=== PATIENT | male | born 1955 | race Caucasian/White ===

== ENCOUNTER 2019-12-19 18:59 | Emergency (ER) | payer BC ==
[2019-12-19] MEDS ORDERED: Sodium Chloride 0.9% 10 ML Syringe FLUSH PRN (19:20)
--- NOTE | 2019-12-19 19:23 | EDM.PDOC ---
ED HPI GENERAL MEDICAL PROBLEM - General Chief Complaint: General Stated Complaint: BACK PAIN Time Seen by Provider: 12/19/19 19:15 Source of Information: Reports: Patient History Limitations: Reports: No Limitations - History of Present Illness INITIAL COMMENTS - FREE TEXT/NARRATIVE: Patient is a 64-year-old gentleman who presents to the emergency department this evening via private vehicle with a complaint of back pain and overall body aches. Patient states he was moving furniture on Monday and developed low back pain. Pain has gradually increased. Patient spoke to [facility] provider earlier today and it was recommended that he present to the emergency department. Patient states that pain is located across low back. Feels very clammy, sweaty, and weak. Patient denies fever, out of area travel, nausea, vomiting, diarrhea, abdominal pain, shortness of breath, chest pain, saddle anesthesia, bowel or urinary incontinence. Patient does have a history of Crohn 's disease, but denies blood in stool. Onset: Gradual Onset Date: 12/14/19 Duration: Day(s): Location: Reports: Back Quality: Reports: Ache Severity: Moderate Improves with: Reports: None Worsens with: Reports: Movement Context: Reports: Activity Associated Symptoms: Reports: Diaphoresis, Weakness. Denies: Chest Pain, Cough , Fever/Chills, Headaches, Shortness of Breath - Related Data Allergies Allergy/AdvReac Type Severity Reaction Status Date / Time hydrochlorothiazide Allergy Headache Verified 12/19/19 19:23 No Known Drug Allergies Allergy Other Verified 11/10/14 07:11 Home Meds: Home Meds Levothyroxine Sodium 25 mcg PO ACBREAKFAST 11/09/14 [History] Loperamide [Imodium AD] 4 mg PO DAILY 11/09/14 [History] Losartan Potassium 100 mg PO DAILY 11/09/14 [History] amLODIPine Besylate [Amlodipine Besylate] 5 mbq PO DAILY 11/09/14 [History] Cholecalciferol (Vitamin D3) [Vitamin D3] 1,000 unit PO DAILY 12/19/19 [History] Magnesium Oxide [Magnesium] 500 mg PO DAILY 12/19/19 [History] Social & Family History - Living Situation & Occupation Living situation: Reports: Occupation: Employed ED ROS GENERAL - Review of Systems Review Of Systems: Comprehensive ROS is negative, except as noted in HPI. Constitutional: Reports: No Symptoms HEENT: Reports: No Symptoms Respiratory: Reports: No Symptoms Cardiovascular: Reports: No Symptoms Endocrine: Reports: No Symptoms GI/Abdominal: Reports: No Symptoms. Denies: Abdominal Pain, Black Stool, Bloody Stool, Constipation, Diarrhea, Nausea, Vomiting : Reports: No Symptoms Musculoskeletal: Reports: Back Pain (Lumbar), Other (Generalized body aches) Skin: Reports: No Symptoms Neurological: Reports: No Symptoms Psychiatric: Reports: No Symptoms Hematologic/Lymphatic: Reports: No Symptoms Immunologic: Reports: No Symptoms ED EXAM, GENERAL - Physical Exam Exam: See Below Exam Limited By: No Limitations General Appearance: Alert, WD/WN, Mild Distress Nose: Normal Inspection, Normal Mucosa, No Blood Throat/Mouth: Normal Inspection, Normal Oropharynx, No Airway Compromise Head: Atraumatic, Normocephalic Neck: Normal Inspection Respiratory/Chest: No Respiratory Distress, Lungs Clear, Normal Breath Sounds, No Accessory Muscle Use, Chest Non-Tender Cardiovascular: No Murmur, Tachycardia GI/Abdominal: Normal Bowel Sounds, Soft, Non-Tender, No Organomegaly, No Distention, No Abnormal Bruit, No Mass, Pelvis Stable Back Exam: Paraspinal Tenderness (Lumbar). No: CVA Tenderness (L), CVA Tenderness (R) Extremities: Normal Inspection, No Pedal Edema Neurological: Alert, Oriented, Normal Cognition Psychiatric: Normal Affect, Normal Mood Skin Exam: Intact, Normal Color, No Rash, Diaphoretic Lymphatic: No Adenopathy Course - Vital Signs Last Recorded V/S: Last Vital Signs Temp 96 F L 12/19/19 21:00 Pulse 123 H 12/19/19 21:14 Resp 37 H 12/19/19 21:14 BP 92/60 12/19/19 21:14 Pulse Ox 95 12/19/19 21:14 - Orders/Labs/Meds Orders: Active Orders 24 hr Category Date Time Status Peripheral IV Care [RC] . DIRECTED Care 12/19/19 19:20 Ordered LACTIC ACID [CHEM] Stat Lab 12/19/19 20:25 Ordered UA W/ИВАН RFLX IF INDICATED [URIN] Stat Lab 12/19/19 19:20 Ordered Sodium Chloride 0.9% [Saline Flush] Med 12/19/19 19:20 Ordered 10 ml FLUSH Q8HR PRN Isolation [COMM] Routine Oth 12/19/19 19:35 Ordered Peripheral IV Insertion Adult [OM.PC] Routine Oth 12/19/19 19:20 Ordered Medication Orders Sodium Chloride (Saline Flush) 10 ml FLUSH Q8HR PRN PRN Reason: keep vein open Labs: Laboratory Tests 12/19/19 12/19/19 Range/Units 19:20 19:20 WBC 9.25 (5.00-10.00) 10^3/uL RBC 4.54 (4.50-6.00) 10^6/uL Hgb 14.7 (13.0-17.0) g/dL Hct 44.0 (40.0-52.0) % MCV 96.9 H D (82.0-92.0) fL MCH 32.4 H (27.0-31.0) pg MCHC 33.4 (32.0-36.0) g/dL RDW 14.2 (11.5-14.5) % Plt Count 27 L (150-400) 10^3/uL Immature Gran % (Auto) 1.0 (0.0-5.0) % Neut % (Auto) 83.8 H (50.0-70.0) % Lymph % (Auto) 10.9 L (20.0-40.0) % [place] % (Auto) 4.0 (2.0-8.0) % Eos % (Auto) 0.2 L (1.0-3.0) % Baso % (Auto) 0.1 (0.0-1.0) % Immature Gran # (Auto) 0.09 (0.00-0.50) 10^3/uL Neut # (Auto) 7.75 H (2.50-7.00) 10^3/uL Lymph # (Auto) 1.01 (1.00-4.00) 10^3/uL [place] # (Auto) 0.37 (0.10-0.80) 10^3/uL Eos # (Auto) 0.02 L (0.10-0.30) 10^3/uL Baso # (Auto) 0.01 (0.00-0.10) 10^3/uL Sodium 133 L (136-145) mmol/L Potassium 3.7 (3.3-5.3) mmol/L Chloride 93 L (98-115) mmol/L Carbon Dioxide 11.9 L D (21.0-32.0) mmol/L Anion Gap 31.8 H (5-15) mmol/L BUN 76 H* D (6-25) mg/dL Creatinine 7.92 H* D (0.51-1.17) mg/dL Est Cr Clr Drug Dosing 8.81 mL/min Estimated GFR (MDRD) 7 mL/min Glucose 83 (75 - 99) mg/dL Calcium 7.5 L (8.7-10.3) mg/dL Total Bilirubin 3.5 H (0.2-1.0) mg/dL AST 191 H (15-37) U/L ALT 97 H (12-78) U/L Alkaline Phosphatase 108 (46-116) IU/L Total Protein 5.4 L (6.4-8.2) g/dL Albumin 1.96 L (3.00-4.80) g/dL Meds: Medications Generic Name Dose Route Start Last Admin Trade Name Freq PRN Reason Stop Dose Admin Sodium Chloride 10 ml 12/19/19 19:20 Saline Flush FLUSH Q8HR PRN keep vein open Discontinued Medications Generic Name Dose Route Start Last Admin Trade Name Freq PRN Reason Stop Dose Admin Hydromorphone HCl 0.5 mg 12/19/19 20:13 12/19/19 20:21 Dilaudid IVPUSH 12/19/19 20:14 0.5 mg ONETIME ONE Administration Sodium Chloride 1,000 mls @ 999 mls/hr 12/19/19 19:20 12/19/19 19:40 Normal Saline IV 12/19/19 20:20 999 mls/hr .BOLUS ONE Administration Sodium Chloride Confirm 12/19/19 20:55 12/19/19 21:08 Normal Saline Administered 12/19/19 20:56 25 mls/hr Dose Administration 1,000 mls @ as directed .ROUTE .STK-MED ONE Ketorolac Tromethamine 30 mg 12/19/19 19:27 12/19/19 19:36 Toradol IVPUSH 12/19/19 19:28 30 mg ONETIME ONE Administration Ondansetron HCl 4 mg 12/19/19 20:13 12/19/19 20:16 Zofran IVPUSH 12/19/19 20:14 4 mg ONETIME ONE Administration - Radiology Interpretation Free Text/Narrative:: X-ray lumbar spine shows no acute fracture. However, nonspecific bowel pattern with suspected small bowel obstruction. CT abdomen and pelvis without contrast shows abnormal bowel gas pattern with dilated stomach and small bowel throughout but no obstruction or ischemia noted. - Re-Assessments/Exams Free Text/Narrative Re-Assessment/Exam: 12/19/19 21:37 Patient afebrile, vital signs stable, pain controlled. Discussed case with Dr. Terrazas, hospitalist at [facility]. He will accept transfer of patient via ground ambulance Departure - Departure Time of Disposition: 21:42 Disposition: DC/Tfer to [facility] 02 Condition: Poor Clinical Impression: Thrombocytopenia Renal failure Qualifiers: Renal failure chronicity: acute Acute renal failure type: unspecified Qualified Code(s): N17.9 - Acute kidney failure, unspecified - Discharge Information Referrals: Ramos Wang MD [Primary Care Provider] - Forms: ED Department Discharge Sepsis Event Note - Focused Exam Vital Signs: Vital Signs Temp Pulse Resp BP Pulse Ox 12/19/19 21:14 123 H 37 H 92/60 95 12/19/19 21:00 96 F L 120 H 36 H 87/45 L 96 12/19/19 20:45 97.3 F 121 H 44 H 93/58 L 12/19/19 20:06 97 F 132 H 52 H 91/36 L 93 L 12/19/19 19:41 122 H 48 H 90/40 L 96 12/19/19 19:26 96.1 F L 112 H 48 H 131/104 H 94 L Date Exam was Performed: 12/19/19 Time Exam was Performed: 21:39 - My Orders Last 24 Hours: My Active Orders 12/19/19 19:20 Peripheral IV Care [RC] . DIRECTED UA W/ИВАН RFLX IF INDICATED [URIN] Stat Sodium Chloride 0.9% [Saline Flush] 10 ml FLUSH Q8HR PRN Peripheral IV Insertion Adult [OM.PC] Routine 12/19/19 19:35 Isolation [COMM] Routine 12/19/19 20:25 LACTIC ACID [CHEM] Stat - Assessment/Plan Last 24 Hours: My Active Orders 12/19/19 19:20 Peripheral IV Care [RC] . DIRECTED UA W/ИВАН RFLX IF INDICATED [URIN] Stat Sodium Chloride 0.9% [Saline Flush] 10 ml FLUSH Q8HR PRN Peripheral IV Insertion Adult [OM.PC] Routine 12/19/19 19:35 Isolation [COMM] Routine 12/19/19 20:25 LACTIC ACID [CHEM] Stat Assessment:: Renal failure Plan: Transfer to [facility]
[2019-12-19] MEDS: Ketorolac 30 MG/ML SDV IVPUSH ONE (19:36)
[2019-12-19] MEDS: Sodium Chloride 0.9% 1,000 ML IV ONE (19:40)
[2019-12-19 19:57] LABS: ANION GAP 31.8 mmol/L (5-15)
[2019-12-19] MEDS: Ondansetron 4 MG/2 ML SDV IVPUSH ONE (20:16)
--- NOTE | 2019-12-19 20:16 | CR ---
[id number] RAD/RAD Lumbar Spine 2-3V Exam: RAD Lumbar Spine 2-3V Indication:PAIN Comparison: No prior imaging for comparison. Discussion: Screening the normal lumbar lordosis. Lumbar spondylosis, including both degenerative disc disease and facet joint arthropathy. Severity ranging from mild to moderate. Facet joint arthropathy at L3-4 results in minimal grade 1 anterolisthesis of approximately 2 or 3 mm. No acute fracture or compression deformity. Abnormal bowel gas pattern with numerous stacked dilated and distended loops of small bowel measuring up to 68 mm. Findings suggest a high-grade small bowel obstruction. Surgical consultation and/or CT examination the abdomen/pelvis is recommended for further evaluation. Impression: Abnormal bowel gas pattern described above with recommendations. Results relayed to Fuentes Philip at time of dictation. Ga Marte MD 12/19/192013 Thank you for allowing us to participate in the care of your patient.
[2019-12-19] MEDS: HYDROmorphone 1 MG/ML Syringe IVPUSH ONE (20:21)
--- NOTE | 2019-12-19 21:05 | CT ---
[id number] CT/CT Abdomen Pelvis WO IV EXAM: CT Abdomen Pelvis WO IV CLINICAL DATA: PAIN COMPARISON STUDY: 2014. FINDINGS: Lung bases are clear. Liver, spleen, pancreas, adrenal glands, and kidneys are unremarkable. No evidence of urinary tract obstruction. Gallbladder is not visualized. Correlate for history of resection. Markedly distended stomach. Dilation extends throughout the small bowel to the level of the ileocecal valve. No focal transition point identified. Findings are nonspecific in etiology. No pneumatosis, portal venous gas, or other signs of bowel ischemia. No pneumoperitoneum to suggest viscus perforation. No abscess. No evidence of enteritis or other etiology to account for an ileus. Large amount retained stool in the rectum extending into the sigmoid segment of the colon. Correlate for constipation. Urinary bladder is unremarkable. No lymphadenopathy in the abdomen or pelvis. Scattered changes of spondylosis throughout the spine. No fracture or osseous lesion. IMPRESSION: Abnormal bowel gas pattern with markedly dilated stomach and small bowel throughout its length from the duodenum to the ileocecal valve. No focal transition point to suggest obstruction. No signs of bowel ischemia or obvious etiology for a small bowel ileus. Large amount of retained stool in the rectum and sigmoid colon. Correlate for constipation. Ga Marte MD 12/19/19 1926 Thank you for allowing us to participate in the care of your patient.
[2019-12-19] MEDS: Sodium Chloride 0.9% 1,000 ML ONE (21:20)
[2019-12-19] MEDS ORDERED: Sodium Chloride 0.9% 1,000 ML IV SCH (21:45)
[2019-12-20 03:45] VITALS: BP 92/47; PULSE 120
== END 2019-12-19 22:00 ==
LOC: KA.ED 18:59
DX: N17.9 Acute kidney failure, unspecified (principal); D69.6 Thrombocytopenia, unspecified; Z88.8 Allergy status to other drugs, medicaments and biological substances; Z79.899 Other long term (current) drug therapy
CPT/HCPCS: 36415; 72100; 74176; 80053; 85025; 87804; 96361; 96374; 96375; 99285-25; J1170; J1885; J2405; J7030